=== PATIENT | female | born 1975 ===

== ENCOUNTER 2018-07-21 06:35 | Day surgery (SDC) | payer OTHER ==
[~2018-07-21 06:35] MED LIST: CIPRO500 MG PO; EXCEDRIN EXTRA1 EAC2 PO; MAGNESIUM400 MG PO; MIRALAX510 GM PO; PROTONIX40 MG PO
== END 2018-07-21 17:50 | disposition home or self-care (01) ==
LOC: CIR.AMB 06:35
DX: N62 Hypertrophy of breast (principal)

== ENCOUNTER 2024-01-27 06:00 | Day surgery (SDC) | payer OTHER ==
[2024-01-18 09:55] LABS: HEMATOCRIT 36.8 % (36.0-45.00); HEMOGLOBIN 11.9 g/dL (12.0-15.00); MEAN CELL VOLUME 70.4 fL (80.00-100.00); MEAN CORPUSCULAR HEMOGLOBIN 22.7 pg (27.00-32.0); MEAN CORPUSCULAR HGB CONC 32.2 g/dl (32.0-36.0); PLATELET COUNT 197 K/uL (150-450); RED BLOOD COUNT 5.23 M/uL (4.00-6.00); RED CELL DISTRIBUTION WIDTH 15.4 % (11.5-14.5)
[2024-01-18 09:57] LABS: PH,URINE 6.5 (5.0-8.0); URINE APPEARANCE Clear; URINE BILIRRUBIN Negative (NEGATIVE); URINE BLOOD Negative; URINE COLOR Yellow; URINE GLUCOSE Negative (NEGATIVE); URINE LEUKOCYTE Negative; URINE NITRATE Negative; URINE PROTEIN Negative (NEGATIVE); URINE UROBILINOGEN 0.2 E.U./dl
[2024-01-18 10:23] LABS: INR 1.04; PARTIAL THROMBOPLASTIN TIME 30.6 SECONDS (22.0-34.0); PROTHROMBIN TIME 10.9 SECONDS (9.0-11.5)
[2024-01-18 10:35] LABS: BILIRUBIN TOTAL 0.32 mg/dL (0.3-1.2); CALCIUM 9.6 mg/dL (8.5-10.1); CREATININE SERUM 0.62 mg/dL (0.55-1.02); GFR 103.18; GLOBULINA 4.1 G/DL (2.4-3.5); POTASSIUM 4.5 mEq/L (3.5-5.1); TOTAL PROTEIN 8.1 gm/dL (6.4-8.2)
[~2024-01-27] VITALS: Ht 160 cm; Wt 65.8 kg
[2024-01-27] MEDS ORDERED: POVIDONE-IODINE 118 ML BOTT TOP ONE (14:34)
[2024-01-27] MEDS ORDERED: CEFAZOLIN SODIUM 1,000 MG VIAL ONE (14:44)
[2024-01-27] MEDS ORDERED: IBU600 MG PO (16:15)
[2024-01-27] MEDS ORDERED: MORGIDOX100 MG PO (16:15)
[2024-01-27] MEDS ORDERED: FAMOTIDINE/PF 20 MG/2 ML VIAL IV ONE (18:30)
[2024-01-27] MEDS ORDERED: FAMOTIDINE/PF 20 MG/2 ML VIAL ONE (18:30)
[2024-01-27] MEDS ORDERED: ONDANSETRON HCL 2 MG/ML VIAL ONE (18:47)
== END 2024-01-27 21:30 | disposition home or self-care (01) ==
LOC: CIR.AMB 06:00
PROVIDERS: ATTEND Obstetrics & Gynecology
DX: D25.0 Submucous leiomyoma of uterus (principal); N84.0 Polyp of corpus uteri; N92.0 Excessive and frequent menstruation with regular cycle; J40 Bronchitis, not specified as acute or chronic; G43.909 Migraine, unspecified, not intractable, without status migrainosus; H52.209 Unspecified astigmatism, unspecified eye; H52.10 Myopia, unspecified eye